=== PATIENT | male | born 1970 | race Caucasian/White ===

== ENCOUNTER 2019-03-01 01:21 | Emergency (ER) | payer SELFPAY ==
[~2019-03-01] VITALS: Ht 157.5 cm; Wt 82.0 kg
[2019-03-01] MEDS ORDERED: ONDANSETRON HCL 4MG/2ML INJ IV STA ×2 (01:38→01:47)
[2019-03-01] MEDS ORDERED: NITROGLYCERIN OINT 1GM/INCH UDPKT TD ONE ×2 (01:43→01:45)
[2019-03-01] MEDS ORDERED: ASPIRIN 325MG TABLET ONE (01:44)
[2019-03-01] MEDS ORDERED: ASPIRIN 81MG TABLET PO ONE (01:45)
[2019-03-01] MEDS ORDERED: MORPHINE SULFATE 4 MG/ML CPJ (NOT FOR IM USE) IV STA (01:47)
[2019-03-01] MEDS ORDERED: ASPIRIN 325MG TABLET PO ONE (02:00)
[2019-03-01] MEDS ORDERED: HEPARIN 5000 UNITS/ML VIAL SUBCUT ONE (02:00)
[2019-03-01 02:03] LABS: EOSINOPHILS % 5.6 % (0.0-5.0); HEMATOCRIT. 45.5 % (42.0-52.0); HEMOGLOBIN. 15.9 g/dL (14.0-18.0); LYMPHOCYTES % 51.5 % (20.0-50.0); MEAN CORPUSCULAR VOLUME 88.8 fL (80.0-94.0); MONOCYTES % 5.9 % (2.0-8.0); PLATELET 267 x1000/uL (130-400); RED BLOOD CELL COUNT 5.12 mill/uL (4.7-6.1); RED CELL DISTRIBUTION WIDTH 13.4 % (11.6-14.6)
[2019-03-01 02:10] LABS: CHLORIDE 104 mEq/L (98-107)
[2019-03-01 02:23] VITALS: BP 152/95
== END 2019-03-01 02:26 | disposition short-term general hospital (02) ==
LOC: ER 01:21
DX: I21.3 ST elevation (STEMI) myocardial infarction of unspecified site (principal); I10 Essential (primary) hypertension; Z72.89 Other problems related to lifestyle
CPT/HCPCS: 36415; 71045; 80053; 83880; 84484; 85025; 93005; 96374; 96375; 99291; J1644; J2270; J2405; Z7610